=== PATIENT | male | born 1990 | race Caucasian/White ===

== ENCOUNTER 2020-09-04 15:19 | Emergency (ER) | payer OTHER ==
[~2020-09-04 15:19] MED LIST: CLINDAMYCIN HC150 MG PO; KEFLEX CAP 500500 MG PO; LODINE CAP 300300 MG PO; VIBRAMYCIN100 MG PO
[2020-09-04 18:06] LABS: HEMOGLOBIN 18.2 gm/dl (14.0-17.5); RED BLOOD COUNT 5.92 M/UL (4.20-5.50); WHITE BLOOD COUNT 7.6 K/UL (4.5-11.0)
[2020-09-04 18:21] LABS: BUN/CREATININE RATIO 17 (0-10)
[2020-09-04] MEDS ORDERED: IBUPROFEN600 MG PO (18:56)
== END 2020-09-04 20:05 | disposition home or self-care (01) ==
LOC: ER1 15:19
PROVIDERS: Internal Medicine
DX: R10.84 Generalized abdominal pain (principal); F17.210 Nicotine dependence, cigarettes, uncomplicated; R51.9 Headache, unspecified; R53.1 Weakness; R94.5 Abnormal results of liver function studies
CPT/HCPCS: 80053; 81001; 85025; 87086; 99284